=== PATIENT | female | born 1960 | race Caucasian/White ===

== ENCOUNTER 2019-03-05 14:44 | Outpatient (REF) | payer OTHER, SELFPAY ==
[2019-03-05 20:27] LABS: Anion Gap 10.4 mmol/L (3-11); BUN 13 mg/dL (7-18); CO2 26.6 mmol/L (21.0-32.0); CREATININE 1.06 mg/dL (0.55-1.02); Calcium 9.3 mg/dL (8.5-10.1); Chloride 103 mmol/L (98-107); Estimated GFR 52.88 (mL/min/1.73m2); Glucose 100 mg/dL (70-100); LDL CHOLESTEROL 192 mg/dL (<100); Potassium 4.1 mmol/L (3.5-5.1); Sodium 140 mmol/L (136-145); TSH 2.24 uIU/mL (0.36-3.74); Vitamin B12 396 pg/mL (193-986)
[2019-03-07 14:30] LABS: Albumin 63.2 % (55.8-66.1); Total Protein 6.9 g/dl (6.3-8.2)
== END 2019-03-05 15:04 ==
LOC: NCHCN 14:44
PROVIDERS: PCP Internal Medicine; Visit Provider Internal Medicine
DX: E78.5 Hyperlipidemia, unspecified (principal); G57.31 Lesion of lateral popliteal nerve, right lower limb
CPT/HCPCS: 80048; 83721; 82607; 84165; 84443

== ENCOUNTER 2019-04-30 18:22 | Outpatient (REF) | payer OTHER, SELFPAY ==
--- NOTE | 2019-04-30 11:05 | SKI_PTH ---
PATIENT: Susan Schneider LOC: [facility] U#:[id number] AGE/SX: 58/F ROOM: RE04/30/[address]: Zane Mcrae : 1960 BED: DIS: 04/30/2019 SPEC #: [id number] RECD: 04/30/19 18:30 STATUS: JOE RENohemy #: [id number] ORTIZ: 04/30/19 11:[address]: Zane Mcrae DEPT: Surgical Specimen RECD BY: Lilly Sanders ENTERED: 04/30/19 18:31 SP TYPE: JULIETTE MAURICE DR: Tyrel Watkins Tissues: 1 - SKIN BIOPSY(SHAVE/PUNCH) Procedures: SKIN LEVEL 4 Comments: [id number]
== END 2019-04-30 18:42 ==
LOC: LBN 18:22
PROVIDERS: PCP Dentist General Practice; Visit Provider Internal Medicine
DX: L82.1 Other seborrheic keratosis (principal)
CPT/HCPCS: 88305

== ENCOUNTER 2020-07-17 02:30 | Outpatient (CLI) | payer OTHER, SELFPAY ==
--- OUTSIDE RECORDS SUMMARY | 2020-07-17 02:32 | XMS_ITS ---
:1960 Author Care Team Providers Name Role Phone REBEKAH NGUYEN NP Primary Care Provider [phone] Allergies Code Code System Name Reaction Severity Status Onset 483600 RxNorm Bactrim Vomiting ? Active ? 11297 RxNorm Percocet Vomiting ? Active ? Medications Name Status Start Date Stop Date ? ? Celebrex 200 mg capsule Completed 01/25/2012 06/06/20 17 1 Capsule: daily cyclobenzaprine 10 mg tablet Active ? Not available diazepam 2 mg tablet Active ? Not availab le Fluarix Quad (PF) 60 Active ? N ot available mcg (15 mcg x 4)/0.5 mL IM syringe Fluarix Quad (PF) 60 mcg (15 mcg x 4)/0.5 mL IM syring e Active ? Not available DIRECTED hydrocodone 5 mg-acetaminophen Active ? N ot available 325 mg tablet ibuprofen 600 mg tablet Active ? Not avai lable meloxicam Active ? Not available as needed meloxicam 15 mg tablet Active ? Not avail able Problems Name Status Onset Date Source ? Hyperlipidemia Active 07/17/2018 ? Shoulder Pain Active 07/17/2018 ? Derangement of Knee Active ? History Knee Pain Active ? History General Examination of Patient Active ? H istory Procedures Date Name Performed by ? 08/17/2018 Drain/inj Joint/bursa W/o Us Information not available Notes: L thumb CMC joint wrist inject ion 08/17/2018 Shoulder Joint Surgery Information not a vailable Notes: R shoulder arthr. w/debrid., R CR, DCE, SAD,bicep tenodesis 01/07/2006 Lymph Node Excision Information not avai lable Notes: Left posterior cervical triang le ? Hysterectomy Information not avai lable ? Knee Surgery Information not avai lable Notes: right- partial knee replacemen t ? Elbow Surgery Information not avai lable Notes: right ? Caesarean Section Information not avai lable ? Shoulder Surgery Information not avai lable Notes: right rotator cuff 05/12/2018 MRI, Shoulder, W/o Contrast [facility] Radiology (Internal) [address] [place] [address] (Work Place) 11/03/2018 MRI, Finger(s), W/o Contrast [facility] Radiology (Internal) [address] [place] [address] (Work Place) 07/03/2020 XR, Finger(s), 2 or More View [facility] Radiology (Internal) [address] [place] [address] (Work Place) Results Lab Results Date Name Specimen Result Interpretation Description Value Range Status Address ? 12/23/2017 Lipid S High Chol 244 50-200 Final [facility] Panel, mg/dL mg/dL Hospital L ab Serum (Internal) : [address] ? ? S - Trig 74 mg/dL 10-150 Final [facility] untry mg/dL Hospital L ab (Internal) : [address] ? ? S High Hdl 81 mg/dL 40-60 Final [facility] untry mg/dL Hospital L ab (Internal) : [address] ? ? S High Ldl 148 0-130 Final [facility] mg/dL mg/dL Hospital L ab (Internal) : [address] Past Encounters 07/03/2020 Pain in Left Thumb SAURAV SealsC: [address] [place] [address] [place], [facility] [address], [place] [address], Ph. 11/22/2019 Chronic Back Pain Carlos Alvarez, PT: [address] [place], [place] [address] , [facility] [address], [place] [address], Ph. 10/08/2019 Chronic Back Pain Carlos Alvarez, PT: [address] [place] [address], [facility] [address], [place] [address], Ph. 10/03/2019 Chronic Back Pain Carlos Alvarez, PT: [address] [place] [address], [address] [address], Ph. 09/17/2019 Chronic Back Pain Carlos Alvarez, PT: [address] [place] [address], [address] [address], Ph. 09/10/2019 Chronic Back Pain Carlos Alvarez, PT: [address] [address], Ph. 07/04/2019 SAURAV SealsC: [address] [place] [phone], Ph. 05/02/2019 SAURAV SealsC: [address] [place] [phone], Ph. 03/20/2019 Lumbar Radiculopathy; Cramp in Lower [place] b; Numbness Zachariah Deal MD: [address] [place] [phone], Ph. 01/24/2019 SAURAV SealsC: [address] [place] [phone], Ph. Social History Tobacco Smoking Status Never Smoker Vaccine List Vaccine Type COVID-19, mRNA, LNP-S, PF, 30 mcg/0.3 mL dose 07/12/2020?0.3 mL DTP 06/02/2006 Hep B, adult MMR varicella Plan of Care Reminders Provider Appointments None ? ? recorded. Lab None ? ? recorded. Referral None ? ? recorded. Procedures None ? ? recorded. Surgeries None ? ? recorded. Imaging None ? ? recorded. Vitals 07/03/2020 01:30PM Follow Up 30 Height Blood Pressure 170.18 cm 112/78 mm[Hg] 07/04/2019 11:00AM Follow Up 15 Height Weight BMI Blood Pressure 170.18 cm 05/02/2019 10:00AM Follow Up 15 Height Weight BMI Blood Pressure 170.18 cm 87.63 kg 30.3 kg/m2 132/88 mm[Hg] 01/24/2019 11:00AM Follow Up 15 Height Weight BMI Blood Pressure 170.18 cm 12/08/2018 09:30AM Follow Up 30 Height Weight BMI Blood Pressure 170.18 cm 86.82 kg 30 kg/m2 158/92 mm[Hg] 10/18/2018 10:45AM Follow Up 15 Height Weight BMI Blood Pressure 170.18 cm 08/30/2018 08:45AM Post Op 15 Height Weight BMI Blood Pressure 170.18 cm 06/23/2018 10:45AM Follow Up 30 Height Weight BMI Blood Pressure 170.18 cm 83.91 kg 29 kg/m2 144/86 mm[Hg] 05/12/2018 09:30AM Consult 30 Height Weight BMI Blood Pressure 170.18 cm 83.55 kg 28.8 kg/m2 134/86 mm[Hg] 01/21/2012 Height Weight Blood Pressure 170.18 cm 92.53 kg 148/84 mm[Hg] 06/02/2006 Height Weight Blood Pressure 169.16 cm 78.93 kg 110/64 mm[Hg]
--- OUTSIDE RECORDS SUMMARY | 2020-07-17 02:33 | XMS_ITS | Encounter Summary ---
:1960 Author Care Team Providers Name Role Phone Leslie Monroe NP Primary Care Provider [phone] Reason for Visit Left hand problem L thumb pain Assessment and Plan Assessment Note 59-year-old female with a left firs t CMC osteoarthritis. We discussed the above diagnosis and options. Again previously she has already tried bracing activity modification she is had an injection i n the past but that was 2 years ago. I t hink is reasonable to consider repeat injection today. Sterile preparation was made over the fi rst CMC joint I injected half cc half percent Marcaine with 40 mg Depo-Medrol. She tolerated the procedure well without complications. She was made aware of lopez ns to contact the office otherwise follo w-up myself self in about 3 weeks. 1. Pain in left thumb ? XR, finger(s), 2 or more v iew Discussion Note: None recorded.Patient educational handouts: No information available. Plan of Care Reminders Provider Appointments Follow up Mary Cain PA-C 15 07/24/2020 8:45AM ? Covid Covid Vacci ne Vaccine 5 08/04/2020 12:35PM Lab None ? ? recorded. Referral None ? ? recorded. Procedures None ? ? recorded. Surgeries None ? ? recorded. Imaging XR, North Count [place] Finger(s), 2 or More 07/03/2020 Hospital [facility] (Internal) Medications Name Start Date ? ? cyclobenzaprine 10 mg tablet ? diazepam 2 mg tablet ? Take 1 tablet every day by oral route. Fluarix Quad (PF) 60 mcg (15 mcg x 4)/0.5 mL IM syringe ? Fluarix Quad (PF) 60 mcg (15 mcg x 4)/0.5 mL IM syringe ? DIRECTED hydrocodone 5 mg-acetaminophen 325 mg tablet ? ibuprofen 600 mg tablet ? Take 1 tablet 3 times a day by oral route. meloxicam ? as needed meloxicam 15 mg tablet ? Medications Administered None recorded. Vitals Height Blood Pressure 5 ft 7 in 112/78 mm[Hg] Results Lab Results None recorded. Allergies Code Code System Name Reaction Severity Onset 152278 RxNorm Bactrim Vomiting ? ? 95733 RxNorm Percocet Vomiting ? ? Problems Name Status Onset Date Source ? [...] not avai lable Notes: right rotator cuff 07/03/2020 XR, Finger(s), 2 or More View [facility] Radiology (Internal) [address] [place] [address] (Work Place) Vaccine List Vaccine Type COVID-19, mRNA, LNP-S, PF, 30 mcg/0.3 mL dose 07/12/2020?0.3 mL DTP 06/02/2006 Hep B, adult MMR varicella Social History Tobacco Smoking Status Never Smoker Illicit drug use? N Alcohol intake Occasional Live alone or with others? alone Hand Dominance Right Are you currently employed? Y Use IV drugs? N Most Recent Tobacco Use Screening 09/06/2018 Advance directive Y Notes: not in la rt, no blood transfusions d/t jeh ovahs witness Functional Status Unknown. Past Encounters 07/03/2020 Pain in Left Thumb aLmar Cain PA-C: [address] [facility], [address], [place] [address], Ph. History of Present Illness Note: <p>63-year-old patient seen in consultation today for left thumb pain. Patient has previously been known to have first CMC osteoarthritis. She was given an injection by Dr. Pace on 08/18/2018 while she was in the OR for her contralateral shoulder surgery. She comes in today stating that she notes pain at the base of her thumb. She feels like she is losing strength. Previous modalities already included bracing and physical therapy.
</p> Review of Systems ? Ortho ROS Reported By: Patient Ortho ROS: Do you have any of the follo wing symptoms? All systems reviewed and normal Physical Exam ? Notes: <p>Patient is alert and orie nted she is in no acute distress respirations unlabored peer inspection of the left hand shows skin is intact without lesions or deformity there i s no swelling. She has crepitus and tenderness to palpation of the left first CMC joint arthritis. She is able to make a composite fist. 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

X-rays: We did obtain x-rays in the office today which were reviewed by myself showing n arrowing at the first CMC joint consistent with osteoarthritis. I also revie wed an MRI that was 2019 of the left first CMC which showed osteoarthritis as well as some slight subluxation radially of the first metacarpal bone.</p>
[2020-07-18 17:02] LABS: COVID-19 RT-PCR UVMMC Result Negative (Negative)
== END 2020-07-17 02:50 ==
PROVIDERS: PCP Internal Medicine; Visit Provider Podiatrist
DX: Z11.59 Encounter for screening for other viral diseases (principal); Z01.818 Encounter for other preprocedural examination
CPT/HCPCS: U0003

== ENCOUNTER 2020-07-23 11:00 | Day surgery (SDC) | payer OTHER, SELFPAY ==
[2020-07-23 11:25] VITALS: BP 139/79; PULSE 67; RESP 18; TEMP 36.5; O2SAT 99
[2020-07-23] MEDS: Lactated Ringers 1,000 ML 80 ML IV (11:43)
--- NOTE | 2020-07-23 13:00 | W.PM.HP.N ---
Date of service: 07/23/20 Time of Service: 13:00 History of Present Illness History of Present Illness Chief Complaint: Recalcitrant right plantar fasciitis Narrative: 59-year-old female with chronic right plantar fasciitis that has not responded to nonoperative treatments. She has pain on a daily basis which is interfering with her ability to wear shoes, ambulate and perform her work duties. ON LICENSE OF [facility] Medical History Acute medial meniscus tear of left knee Compression of common peroneal nerve Depression Fibromyalgia Hallux valgus Hip pain History of trigger finger Hyperlipemia Lumbago with sciatica Pain, joint, shoulder, right Right ACL tear Seborrheic keratosis Spondylosis Venous insufficiency Vertigo Surgical History H/O: hysterectomy History of knee replacement Song (R) Hx of elbow surgery Hx of shoulder surgery Social History Smoking/Tobacco Use Status: Never Smoking risk assessment performed?: Yes Alcohol Intake: current Alcohol Intake frequency: a few times a month Drug use: Never Substance use type: does not use Do you feel safe at home: Yes Additional Social history: lives alone, has a cat Meds Home Medications and Allergies Home Medications Medication Instructions Recorded Confirmed Type COVID-19 vacc,mRNA(Pfizer)(PF) 0.3 ml IM ONCE 07/21/20 07/21/20 History meloxicam 15 mg PO DAILY 07/21/20 07/21/20 History Allergies Allergy/AdvReac Type Severity Reaction Status Date / Time oxycodone [From Percocet] Allergy Severe Other (See Unverified 07/23/20 11:31 Comment) sulfamethoxazole Allergy Severe Other (See Unverified 07/23/20 11:31 [From Bactrim] Comment) trimethoprim [From Bactrim] Allergy Severe Other (See Unverified 07/23/20 11:31 Comment) acetaminophen [From Percocet] Allergy Mild Other (See Unverified 07/23/20 11:31 Comment) Exam Narrative Exam Narrative: 59-year-old female in no acute distress looking her stated age. Head is normocephalic Eyes PERRLA Hearing is adequate Heart has regular rate and rhythm without gallops rubs or murmurs noted Lung tiwari were clear Abdomen is soft, bowel sounds x4 Peripheral pulses are easily palpable at the ankle graded 2/4. No peripheral edema noted. Calves are soft to palpation. Muscle groups 5 out of 5 bilaterally. Skeletal exam is remarkable for pain in the plantar medial aspect of the right heel and along the medial slip of plantar fascia. Pain is graded a +5/10. Neurologically grossly intact. No focal deficits noted. Impressions: Recalcitrant right plantar fasciitis Plan: Susan is being brought to the OR for a endoscopic plantar fasciotomy right foot. She understands risk and complications pertaining to pain, scarring, infection, persistent plantar fascial discomfort, lateral column pain, neurologic injury. No promises made to final outcome of surgery. Informed consent obtained. Results Last Vital Signs Temp 36.5 C 07/23/20 11:25 Pulse 67 07/23/20 11:25 Resp 18 07/23/20 11:25 BP 139/79 07/23/20 11:25 Pulse Ox 99 07/23/20 11:25 COVID-19 Screening Have you, or household traveled for leisure in last 14 days?: No Had IN PERSON contact w/suspected or confirmed C-19 person: No
[2020-07-23] MEDS: ceFAZolin 1 GM/50 ML BAG IVPB (13:16)
[2020-07-23] MEDS: Bupivacaine 0.5% Pres-Free 30 ML VIAL (13:22)
[2020-07-23] MEDS: Lidocaine 1% Multi-Dose 50 ML VIAL (13:22)
[2020-07-23] MEDS: Dexamethasone 4 MG/ML VIAL (13:52)
--- NOTE | 2020-07-23 13:58 | W.PM.DSUDISC ---
Discharge Plan Disposition Patient Disposition: HOME Condition: Good Discharge Details Reason For Visit: EPF right foot Attending Provider: Wade Logan Primary Care Provider: Zane Mcrae Home Meds and New Rx's Prescriptions: Continued meloxicam 15 mg tablet 15 mg PO DAILY RF: 0 COVID-19 vacc,mRNA(Pfizer)(PF) 30 mcg/0.3 mL Suspension For Reconstitution 0.3 ml IM ONCE RF: 0 Discharge Instructions Activity:: Elevate Remove Dressings/Wound Care:: Do Not Remove Shower/Bathe:: Cover Diet:: Normal Diet Discharge Orders Discharge Orders: Discharge Order (Routine); Ordered 07/23/20 Ordered By: Wade Logan DS: Diagnosis Discharge Diagnosis (1) Plantar fasciitis of right foot: Status: Acute
--- NOTE | 2020-07-23 14:01 | W.PM.OP ---
Date of service: 07/23/20 Time of Service: 14:01 Operative Note Operative Note DATE OF PROCEDURE: 07/23/20 PRE-OP DIAGNOSIS: Plantar fasciitis right foot POST-OP DIAGNOSIS: same PROCEDURE: Endoscopic plantar fasciotomy right foot SURGEON: Wade Logan ANESTHESIA: CHITO ESTIMATED BLOOD LOSS: 0 PATHOLOGY: none sent TOURNIQUET TIME: 18 COMPLICATIONS: None Patient was transported to: same day Patient's condition: stable Procedure Description: Susan was brought to the operative suite placed in the supine position with the right foot was prepped and draped in usual sterile podiatric fashion. Anesthesia was achieved through general anesthesia and a right ankle block consisting of 20 cc 50: 50 mixture 1% lidocaine plain, 0.5% Marcaine plain. Timeout was performed by protocol. The right foot was exsanguinated well-padded ankle tourniquet inflated 250 normal mercury. Was directed to the medial aspect of the right heel where a 1 cm vertical incision was placed approximately 5 cm distal from the back of the heel and 2.5 cm up from the plantar aspect of the heel. The incision was deepened with a curved hemostat and the medial vestige of the plantar fascia identified. The periosteal?fascial elevator was then inserted and a tunnel made from medial to lateral. The obturator and cannula were then inserted and placed exiting plantarly laterally on the heel. The scope 30 degrees was placed into the cannula and the plantar fascia was readily visualized. Picture was obtained at this level. The hook blade was then utilized in the medial third of the plantar fascia open. Underlying muscle belly was appreciated. The triangular blade was then used and any remaining fibers gently released. Photograph was obtained showing the underlying muscle through the fascia. The scope was removed from the medial portal and placed laterally to medially inspection revealed good release of the the appropriate portion of the plantar fascia. The cannula was then irrigated copiously with normal saline and the cannula was removed. The medial lateral incisions were closed with simple interrupted suture 3-0 nylon. 4 mg dexamethasone phosphate was infused deeply into the wound. Xeroform gauze fluff compression dressings were applied. Tourniquet was released at 18 minutes with vascularity returning immediately to all toes. Susan left the OR vital signs stable vascular status intact sharp and sponge counts were correct. To be followed by myself in the office next week. Dictated with Germain naturally speaking not approved for accuracy.
[2020-07-23 14:34] VITALS: BP 116/72; PULSE 65; RESP 18; TEMP 36.4; O2SAT 97
== END 2020-07-23 15:00 | disposition home or self-care (01) ==
PROVIDERS: PCP Internal Medicine; Visit Provider Podiatrist
PROC: (CPT 29893; principal; 2020-07-23 12:00)
DX: M72.2 Plantar fascial fibromatosis (principal)
CPT/HCPCS: 29893; 99223; J0690; J1100; J1885; J2001

== ENCOUNTER 2023-05-06 16:30 | Outpatient (REF) | payer MEDICAID, SELFPAY ==
--- OUTSIDE RECORDS SUMMARY | 2023-05-06 16:33 | XMS_ITS | Continuity of Care Document ---
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 Name Role Phone Neema Guan DO Primary Care Physician Encounter [facility] NBR [id number] Date(s): 12/09/22 - 12/09/22 [facility] [address] [place] [address]- [place] Discharge Disposition: Home or Self Care Attending Physician: Neema Guan DO Allergies, Adverse Reactions, Alerts Substance Reaction Severity Status dexAMETHasone topical Rash Moderate Active acetaminophen-oxycodone Unknown Unknown Acti ve Adhesive Bandage Rash Unknown Active Bee Stings Unknown Unknown Active sulfaSALAzine Unknown Unknown Active Melons Unknown Active Functional Status 12/09/22 Other exposure to Infectious Disease Non e Medications topiramate 25 mg oral tablet 50 mg =, Oral, Daily, 90 EA, TAKE ONE TABLET BY MOUTH IN THE MORNING AND TAKE 2 TABLETS IN THE EVENING DAILY, 0 Refill(s) Start Date: 05/25/22 Status: Ordered Problem List Condition Confirmation Course Effective Dates Status Health Status Informant Acquired spondylolisthesis Confirmed Active Bilateral sacroiliitis Confirmed Active History of anxiety Confirmed Active History of arthritis Confirmed Active History of depression Confirmed Active History of bowel disorder Confirmed Active History of fibromyalgia Confirmed Active History of hyperlipidemia Confirmed Active History of anemia Confirmed Active History of headache Confirmed Active Shoulder joint pain Confirmed Active Procedures Procedure Date Related Diagnosis Body Site Status Hysterectomy 1 Completed 1date unknown Social History Social History Type Response Tobacco Tobacco use status u nknown Tobacco Use:. Sex Patient Care team information Care Team Personnel Name: Neema Guan DO Position: Physician Member Role: Primary Care Physician Address: Address: [address] [place], [place] [address]
--- OUTSIDE RECORDS SUMMARY | 2023-05-06 16:33 | XMS_ITS | Continuity of Care Document ---
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 Name Role Phone Eliumelissa Donna Chad Primary Care Physician [phone] Encounter [facility] Date(s): 12/22/22 - 12/22/22 [facility] [address] [place] [address] Encounter Diagnosis Unilateral primary osteoarthritis of first carpometacarpal joint, left hand (Final) - Discharge Disposition: Home or Self Care Attending Physician: Simba Beck MD Admitting Physician: Simba Beck MD Referring Physician: Simba Beck MD Allergies, Adverse Reactions, Alerts Substance Reaction Severity Status sulfamethoxazole-trimethoprim Vomiting Unknown Active acetaminophen-oxycodone Vomiting Unknown Acti ve Tape Moderate Active Melons Unknown Active dexAMETHasone Unknown Active Assessment and Plan Future Appointments Functional Status 12/22/22 Recent Travel History No recent travel Other exposure to Infectious Disease Non e Immunizations Given and Recorded Vaccine Date Status Refusal Reason SARS-CoV-2 (COVID-19) mRNA BNT-162b2 vax 08/04/20 Recorded SARS-CoV-2 (COVID-19) mRNA BNT-162b2 vax 07/12/20 Recorded hepatitis B adult vaccine 07/25/00 Recorded measles/mumps/rubella virus vaccine 07/25/00 Recor ded varicella virus vaccine 07/25/00 Recorded Medications !-magnesium oxide 400 mg (240 mg elemental magnesium) oral tablet 400 mg 1 tab, Oral, Daily, # 100 tab, 0 Refill(s) Start Date: 12/13/22 Status: Ordered !-Zofran 4 mg oral tablet 4 mg = 1 tab, Oral, every 8 hr, # 20 cap, 0 Refill(s), Pharmacy: [facility], 170, cm, 12/18/21 15:37:00 EDT, Height/Length Dosing, 82.55, kg, 12/18/21 15:37:00 EDT, Weight Dosing Start Date: 12/22/22 Status: Ordered acetaminophen 0 Refill(s) Start Date: 12/22/22 Status: Ordered Dilaudid 2 mg oral tablet 2 mg = 1 tab, Oral, BID, # 5 tab, 0 Refill(s) Start Date: 12/23/22 Status: Ordered EPINEPHrine 0.3 mg injectable kit 2 EA, INJECT ONE PEN INJECTOR INTO THE MUSCLE DIRECTED NEEDED, 0 Refill(s) Start Date: 12/13/22 Status: Ordered topiramate 25 mg oral tablet 270 EA, TAKE ONE TABLET BY MOUTH EVERY MORNING AND TAKE TWO TABLETS BY MOUTH EVERY EVENING, 0 Refill(s) Start Date: 12/13/22 Status: Ordered turmeric 500 mg oral capsule 500 mg = 1 cap, Oral, Daily, # 60 cap, 0 Refill(s) Start Date: 12/13/22 Status: Ordered Problem List Condition Confirmation Course Effective Dates Status Health St atus Informant CMC DJD(carpometacarpal degenerative joint disease), localized primary Confirmed Active Procedures Procedure Date Related Diagnosis Body Site Status section Complete d Elbow Completed Hysterectomy Completed Knee 1 Completed Lymph node Completed Rotator cuff Completed 1PKR Vital Signs Most recent to oldest [Reference Range]: 1 2 3 Temperature Temporal Artery [36-38 Deg C] 36.4 Deg C (12/22/22 5:22 PM) 35.9 Deg C *LOW* (12/22/22 4:35 PM) 36.3 Deg C (12/22/22 4:20 PM) Temperature Temporal Artery (DegF) [97.3-100 Deg F] 96.62 Deg F *LOW* (12/22/22 4:35 PM) 97.34 Deg F (12/22/22 4:20 PM) Peripheral Pulse Rate [60-100 bpm] 64 bpm (12/22/22 5:22 PM) 72 bpm (12/22/22 5:20 PM) 75 bpm (12/22/22 5:15 PM) Heart Rate Monitored [60-100 bpm] 64 bpm (12/22/22 5:22 PM) 72 bpm (12/22/22 5:20 PM) 75 bpm (12/22/22 5:15 PM) Respiratory Rate [12-24 br/min] 18 br/min (12/22/22 5:22 PM) 16 br/min (12/22/22 5:20 PM) 18 br/min (12/22/22 5:15 PM) Blood Pressure [90-140/60-90 mmHg] 130/85mmHg (12/22/22 5:22 PM) 132/79mmHg (12/22/22 5:20 PM) 132/79mmHg (12/22/22 5:15 PM) Mean Arterial Pressure, Cuff [65-140 mmHg] 100 mmHg (12/22/22 5:22 PM) 97 mmHg (12/22/22 5:20 PM) 97 mmHg (12/22/22 5:15 PM) Mean Arterial Pressure Cuff 94 mmHg (12/22/22 10:54 AM) Blood Pressure Location Right arm (12/22/22 10:54 AM) Weight 82.8 kg (12/22/22 10:54 AM) Weight Estimated 82.55 kg (12/15/22 1:20 PM) Height 170 cm (12/22/22 10:54 AM) Social History Social History Type Response Tobacco Never tobacco user T obacco Use:. Sex Female Discharge instructions * Alana Henley: PERFORM Event Display: Discharge Instructions Authored Date: [id number] CHARANJIT AVILA :1960 Age:62 years Sex:Female Visit Date:12/22/2022 Primary Care Physician: Donna Lizama FIRE MANAGEMENT SPECIALIST Hospital Discharge Instructions We would like to thank you for allowing us to assist you with your healthcare needs. The following includes patient education materials and information regarding your injury/illness. Your Next Steps Instructions From Your Care Team Orthopedic Surgery Discharge Instructions keep splint clean and dry until follow up in ortho office sling PRN ?? Pain Control ?Take your pain relief medication when discomfort first begins. ?Can use stool softener while taking the narcotic to avoid problems with constipation. ?It is okay to start [id number] Naproxen or Ibuprofen??immediately ?? Call your doctor if you: ?Develop a fever over 101 degrees. ?Have increased redness, warmth, discharge, swelling, or hardness around the operative site. ?Circulation changes such as tingling, numbness or your fingers/toes appear blue or white. ?Your pain is not adequately controlled, despite taking your pain medication routinely. ?? On the day of surgery, or while taking narcotic pain medication: No driving, operating power equipment,?? drinking alcohol,?? or taking mood altering drugs? Apply warm, moist compress to IV site if sore or red, for 20 minutes, 4 times a day, for 2-3 days.?? Call your doctor if IV site soreness or redness persists. In the event of any problems after surgery, contact your doctor or the Emergency Room @ . Ortho Office: [phone]?? Scheduled Future Appointments Tuesday 3:15 PM EDT ?? With: Lamar Cain PA-C Where: [facility] [address] [place] [address], [address] [place] [address] Status: Confirmed 2022 10:15 AM EDT ?? With: Sanjeev VTSimba Bonilla MD Where: [facility] [address] [place] [address], [address] [place] [address] Status: Confirmed 2022 11:00 AM EDT ?? With: Penny Wilburn OT Where: [facility] [address] [place] [phone] Status: Confirmed Medications What How Much When Instructions Next Dose New HYDROcodone-acetaminophen (!-[place] 5 mg-325 mg oral tablet) 1 tab Oral (given by mouth) Every 6 hours as needed for as needed for pain Pickup at [facility] New ondansetron (!-Zofran 4 mg oral tablet) 1 tab Oral (given by mouth) Every 8 hours Pickup at [facility] Unchanged acetaminophen Unchanged EPINEPHrine (EPINEPHrine 0.3 mg injectable kit) 2 EA, INJECT ONE PEN INJECTOR INTO THE MUSCLE DIRECTED NEEDED ?? Unchanged magnesium oxide (!-magnesium oxide 400 mg (240 mg elemental magnesium) oral tablet) 1 tab Oral (given by mouth) Every day Unchanged topiramate (topiramate 25 mg oral tablet) 270 EA, TAKE ONE TABLET BY MOUTH EVERY MORNING AND TAKE TWO TABLETS BY MOUTH EVERY EVENING ?? Unchanged turmeric (turmeric 500 mg oral capsule) 1 Capsules Oral (given by mouth) Every day Pharmacy Information [facility]: [address] [place], [place] [phone] Your Summary Your Care Team Admitting Physician - Sanjeev SALAZAR, Simba Shine MD Attending Physician - Sanjeev SALAZAR, Simba Shine MD Primary Care Physician - Donna Lizama NP Referring Physician - Sanjeev SALAZAR, Simba Shine MD Problems Ongoing - Any problem that you are currently receiving treatment for. CMC DJD(carpometacarpal degenerative joint disease), localized primary Allergies Tape Melons acetaminophen-oxycodone??(Vomiting) dexAMETHasone sulfamethoxazole-trimethoprim??(Vomiting) Patient Name:VIOLET AVILAEILEEN Cheng I have received this information and my questions have been answered. Patient/Online Editor Name: Patient/Online Editor Signature: Relationship to Patient: Witness Name/Signature: Date: Electronically Signed on: 12/22/2022 16:38 EDTSigned by:EDENILSON History and physical note * Sisi Mon A: PERFORM Event Display: History and Physical Authored Date: [id number] CHARANJIT AVILA :1960 Age:62 years Sex:Female Primary Care Physician: Donna Lizama FIRE MANAGEMENT SPECIALIST Visit Date:??12/13/2022 [1] ? Chief Complaint EPSP- Left thumb pain d/t injury a few years ago. Last njection with Afsaneh 02/16/22. pt is readyn to discuss options. ?? *Meds reviewed and updated with pt. History of Present Illness Known patient history of left thumb CMC joint arthritis has been present for the last several years. ??Has had bracing and injections without significant benefit Review of Systems Constitutional:?No??fevers,?No??chills,?No??sweats Eye:?No??recent visual problems ENT:?No??ear pain,?No??nasal congestion,?No??sore throat Respiratory:?No??shortness of breath,?No??cough Cardiovascular:?No??Chest pain,?No??palpitations,?No??syncope Gastrointestinal:?Nonausea,?No??vomiting,?No??diarrhea Genitourinary:?No??hematuria Anil/Lymph:?No??bruising tendency,?No??swollen lymph glands Endocrine:?No??excessive thirst,??No??excessive hunger Musculoskeletal:??No??back pain,??No??neck pain,??No??joint pain,??No??muscle pain,??No??decreased range of motion Integumentary:?No??rash,?No??pruritus,?No??abrasions Neurologic: Alert & oriented X 4 Psychiatric:?No??anxiety,?No??depression Physical Exam ?Vitals & Measurements ?HT:??170.18??cm?? WT:??84.32??kg?? BMI:??29.11?? BSA:??2?? Well-nourished well-developed acute distress alert and oriented appearing stated age. ??Has normal elbow wrist hand range of motion normal capillary refill distally no open wounds signs of erythema or infection.?? Has significant pain and crepitance on CMC grind and shuck??stable collateral ligaments to the MP and IP joint with normal tendon function. Assessment/Plan 1.??CMC DJD(carpometacarpal degenerative joint disease), localized primary??M19.049 ?Procedure arthritis. ??Options watchful waiting therapy bracing injection surgical invention for CMC arthroplasty after discussing??the surgical procedure in detail as well as timeline for recovery she wished to proceed so we will set her up for CMC arthroplasty??see her back in at the time of surgery. ?Ordered: Surgical Procedure Booking Request, 12/13/22 10:02:00 EDT, [facility], Simba Shine MD, Primary Procedure, CMC arthroplasty left thumb, Left first CMC arthroplasty. Need 60 minutes. Date and time per maintenance and engineering manager. BMI 29. Standard equipment. Patient asking for regional block with light sed... ?? Thumb pain??M79.646 ?Ordered: XR Finger(s) 2+ Views Left, 12/13/22 10:17:00 EDT, Routine, Reason: pain, Transport Mode: Ambulatory, Thumb pain, Exam to be performed outside organization? ?? Problem List/Past Medical History Ongoing ?CMC DJD(carpometacarpal degenerative joint disease), localized primary Historical ?No qualifying data Procedure/Surgical History ??? section???Elbow???Hysterectomy???Knee???Lymph node???Rotatorcuff ?? Medications ??!-magnesium oxide 400 mg (240 mg elemental magnesium) oral tablet, 400 mg= 1 tab, Oral, Daily ??EPINEPHrine 0.3 mg injectable kit ??topiramate 25 mg oral tablet ??turmeric 500 mg oral capsule, 500 mg= 1 cap, Oral, Daily Allergies acetaminophen-oxycodone??(Vomiting) sulfamethoxazole-trimethoprim??(Vomiting) Social History Electronic Cigarette/Vaping ??Electronic Cigarette Use: Never. Tobacco ??Never tobacco user Tobacco Use:. [2] [1]??Office Visit Note; Simba Beck MD 12/13/2022 11:26 EDT [2]??Office Visit Note; Simba Beck MD 12/13/2022 11:26 EDT Electronically Signed on 12/15/22 11:27 AM ElieserSisi Electronically Signed on 12/15/22 11:35 AM Simba Beck MD * Simba Beck MD: PERFORM Event Display: History and Physical Authored Date: Patient was seen in preoperative hold no change in generalized health status H&P updated. Electronically Signed on 12/22/22 03:27 PM Simba Beck MD Patient Care team information Care Team Personnel Name: Donna Lizama FIRE MANAGEMENT SPECIALIST Position: PowerChart View Only Member Role: Informed Provider Address: Address: [address] [place] [address] Care Team Related Persons Name: LUIS ARGUELLO Name: VERONICA BERRY
--- OUTSIDE RECORDS SUMMARY | 2023-05-06 16:33 | XMS_ITS | Continuity of Care Document ---
Author Name Unknown Organization [facility] Address [address] [place] [address] Care Team Providers Care Combat Systems Engineer Name Role Phone ALEX MONGE, ADRIANE LEES Primary Care Physicia n Encounter [facility]BR [id number] Date(s): 03/16/23 - 03/16/23 [facility] [address] [place] [address] [place] Encounter Diagnosis Lumbar spondylosis(Discharge Diagnosis) - 03/16/23 Low back pain(Discharge Diagnosis) - 03/16/23 Discharge Disposition: Home or Self Care Attending Physician: Neema Guan DO Allergies, Adverse Reactions, Alerts Substance Reaction Severity Status dexAMETHasone topical Rash Moderate Active acetaminophen-oxycodone Unknown Unknown Acti ve Adhesive Bandage Rash Unknown Active Bee Stings Unknown Unknown Active Vicodin Vomiting Moderate Active sulfaSALAzine Unknown Unknown Active Melons Unknown Active Medications DULoxetine 20 mg oral delayed release capsule 20 mg = 1 cap, Oral, Daily, do not crush or chew, # 30 cap, 1 Refill(s), Pharmacy: [id number] Start Date: 03/16/23 Status: Ordered meloxicam 15 mg oral tablet 0 Refill(s) Start Date: 02/02/23 Status: Ordered topiramate 25 mg oral tablet 50 mg [...] Site Status Hysterectomy 1 Completed 1date unknown Vital Signs Most recent to oldest [Reference Range]: 1 Temperature Temporal Artery [36-38 Deg C ] 35.9 Deg C *LOW* (03/16/23 4:53 PM) Peripheral Pulse Rate [60-100 bpm] 73 bp m (03/16/23 4:53 PM) Blood Pressure [90-140/60-90 mmHg] 122/7 0mmHg (03/16/23 4:53 PM) Social History Social History Type Response Tobacco Tobacco use status u nknown Tobacco Use:. Sex Patient Care team information Care Team Personnel Name: ADRIANE JOHNSON PA-C Position: No Access Member Role: Primary Care Physician Address: Address: [address] [place] [id number]
--- OUTSIDE RECORDS SUMMARY | 2023-05-06 16:33 | XMS_ITS | Continuity of Care Document ---
Author Name Unknown Organization [facility] Address [address] [place] [address] Care Team Providers Care Emergency Medicine Name Role Phone Donna Lizama Primary Care Physician [phone] Encounter [facility] Date(s): 11/08/22 - 11/08/22 [facility] [address] [place] [address] Discharge Disposition: Home or Self Care Attending Physician: Mike Charles PA-C Admitting Physician: Mike Charles PA-C Referring Physician: Mike Charles PA-C Allergies, Adverse Reactions, Alerts Substance Reaction Severity Status sulfamethoxazole-trimethoprim Vomiting Unknown Active acetaminophen-oxycodone Vomiting Unknown Acti ve Immunizations Given and Recorded Vaccine Date Status Refusal Reason SARS-CoV-2 (COVID-19) mRNA BNT-162b2 vax 08/04/20 Recorded SARS-CoV-2 (COVID-19) mRNA BNT-162b2 vax 07/12/20 Recorded hepatitis B adult vaccine 07/25/00 Recorded measles/mumps/rubella virus vaccine 07/25/00 Recor ded varicella virus vaccine 07/25/00 Recorded Medications topiramate 0 Refill(s) Start Date: 12/18/21 Status: Ordered Social History Social History Type Response Tobacco Never tobacco user T obacco Use:. 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
--- OUTSIDE RECORDS SUMMARY | 2023-05-06 16:33 | XMS_ITS | Continuity of Care Document ---
Author Name Unknown Organization [facility] Ambulatory Clinics Address [address] [place] [address] Care Team Providers Care It Desktop Support Technician Name Role Phone Unavailable, Physician Primary Care Physician Un available Encounter [facility] NBR [id number] Date(s): 07/08/22 - 07/08/22 [facility] [address] [place] [address] [place] Encounter Diagnosis Lumbar radiculopathy(Discharge Diagnosis) - 07/08/22 Discharge Disposition: Home or Self Care Attending Physician: Gael Lopez DO Allergies, Adverse Reactions, Alerts Substance Reaction Severity Status acetaminophen-oxycodone Unknown Unknown Acti ve Adhesive Bandage Rash Unknown Active Bee Stings Unknown Unknown Active sulfaSALAzine Unknown Unknown Active Melons Unknown Active Assessment and Plan Future Appointments Functional Status 07/08/22 Other exposure to Infectious Disease Non e Medications calcitonin 100 IntlUnit =, Nasal, Daily, 0 Refill(s) Start Date: 05/25/22 Status: Ordered topiramate 25 mg oral tablet 50 mg =, Oral, Daily, 90 EA, TAKE ONE TABLET BY MOUTH IN THE MORNING AND TAKE 2 TABLETS IN THE EVENING DAILY, 0 Refill(s) Start Date: 05/25/22 Status: Ordered Problem List Condition Confirmation Course Effective Dates Status Health Status Informant Acquired spondylolisthesis Confirmed Active Bilateral sacroiliitis Confirmed Active Social History Social History Type Response Tobacco Tobacco use status u nknown Tobacco Use:. Sex Patient Care team information Personnel Name: Unavailable, Physician
--- OUTSIDE RECORDS SUMMARY | 2023-05-06 16:33 | XMS_ITS | Continuity of Care Document ---
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 Daughter and young grandchildren live close by. *Previous Level of Function: Patient was independent with all ADL and IADL with no functional difficulty using left hand prior to onset of arthritis. *Current Level of Function:??Patient is currently unable to open medication bottles. The vibration when weedwacking was painful, still, she was able to vacuum her car yesterday. She keeps the thumb brace on when turning doorknobs. Washing her hair is fine by now. She cannot hook her bra at all, so is wearing ice puller bra. She modifies activities, including using her feet or fingers vs thumb. Ziploc bags are miserable, she is currently using vice sales training representative to open these. Pain: Location: ??Not pain, just lame. Nature: ??Achy Behavior: ??The worst pain occurred with lifting Severity: ??2/10 at rest and 9/10 at the worst during the last week Other: ??Continues to use ice and Tylenol prn. Pain does not wake her up from sleep. Hand Dominance: Right HAND Palpation:??No tenderness to gentle palpation at thumb or over any incision site. Minimal scar tissue adherence. Skin Inspection: Scars appear well healed. She continues to use Vitamin C cream, scar zone and Frankincense over incisions daily. Hand Edema (general): None significant. Finger Joint Mobility/ROM/Strength: Thumb R AROM L AROM R PROM L PROM R Strength L Strength MP Flexion ??68 ??37 MP Extension ??0 ??0 Radial Abduction ??56 ??50 Palmar Abduction ??45 ??46 IP Flexion ??66 ??52 IP Extension ??0 ??0 Digit Composite ROM: Patient is able to make bilateral closed fists with all digits touching palm. Opposition: Patient can touch: Right tip Right base Left tip Left base Index Middle Ring Little All ??yes ??yes ??yes ??1.0 cm away Warehouse Technician Strength (lbs): Not assessed as per protocol Trial #1 Trial #2 Trial #3 Average R L R L R L R L Dynamometer Position #1 Dynamometer Position #2 Dynamometer Position #3 Dynamometer Position #4 Dynamometer Position #5 Warehouse Technician Strength Normative Values (lbs): Warehouse Technician Strength Normative Values (lbs): Female ages 60-64: right mean 55.1 with SD 10.1 and left mean 45.7 with SD 10.1 3 Point Pinch Strength (lbs): Not assessed as per protocol Trial #1 Trial #2 Trial #3 Average R L R L R L R L 3 Point Pinch Strength Normative Values (lbs): 3 Point Pinch Strength Normative Values (lbs): Female ages 60-64: right mean 14.8 with SD 3.1 and left mean 14.3 with SD 2.7 2 Point Pinch Strength (lbs): Not assessed as per protocol Trial #1 Trial #2 Trial #3 Average R L R L R L R L 2 Point Pinch Strength Normative Values: 2 Point Pinch Strength Normative Values (lbs): Female ages 60-64: right mean 10.1 with SD 2.1 and left mean 9.9 with SD 2.0 Lateral Pinch Strength (lbs): Not assessed as per protocol Trial #1 Trial #2 Trial #3 Average R L R L R L R L Lateral Pinch Strength Normative Values: Lateral Pinch Strength Normative Values (lbs): Female ages 60-64: right mean 15.5 with SD 2.7 and left mean 14.1 with SD 2.5 Hand Sensation: Intact, patient denies any paresthesia or numbness in any digit. Manual Dexterity and Coordination Tests: 9 Hole Peg Test: ?Normative Values: 9 Hole Peg Test Normative Values: Female ages 61-65: right mean 18.99 with SD 2.18 and left mean 20.33 with SD 2.76 ? Results/Analysis: R 23.15 seconds, L 28.3 seconds (pain through thumb IP joint) Hand Orthosis: Currently using left thumb spica orthosis with any aggravating activity and during sleep. WRIST Palpation and Skin Inspection: WFL Wrist Edema (general): ??None significant. Wrist Joint Mobility/ROM/Strength: Strength not assessed as per protocol. R AROM L AROM R PROM L PROM R Strength L Strength Flexion ??81 ??60 (pain at dorsal hand) Extension ??60 ??51 Ulnar Deviation ??40 ??29 Radial Deviation ??20 ??12 Supination ??WFL ??WFL Pronation ??WFL ??WFL Wrist Sensation: Intact. Upper Quadrant Screen: Elbow and shoulder AROM are WFL bilaterally. *Patient Education: Home program initiated with wrist stretches and gentle thumb AROM, as well as PROM to be performed at 6 weeks post op. Review of protocol. Upcoming POC. *Occupational Therapy Assessment: Patient is a 62 year old female referred to OT s/p left first CMCarthroplasty with DOS 12/22/22. She presents today with left thumb and wrist stiffness, and will benefit from therex provided to maximize AROM. Patient's scars appear to be healing well. Strength was not assessed today as per protocol. Patient demonstrates good understanding of her home program, still, she will benefit from additional skilled OT services to maximize post op protocol and functionaluse of her left hand during ADL. *Rehab Potential: Good?to reach the established goals *Functional Outcome Measure: FOM: Patient Rated Wrist/Hand Evaluation (PRWHE) ? Score: Current functional impairment level is 54% *Short Term Goals:??deferred to LTG *Project Asst Goals: time frame is 3 weeks 1. Patient will have no more than 5/10 left thumb pain at the worst during ADL. 2. Left thumb IP flexion AROM will be 59 degrees, to facilitate independence with clothing fastenermanagement. 3. Left wrist flexion AROM will be 68 degrees, to facilitate independence with cooking tasks. Strengthening goals to come as appropriate. *Patient Goals: To use left hand without pain. *Frequency of Treatment: 1x follow up *Intensity of Treatment (minutes):??45 minutes *Duration of Treatment (days/weeks): 3 weeks *Planned Treatment Interventions: ??x CPT 32699: Therapeutic Exercise: A/AA/PROM, gentle resistive therex as per protocol CPT G0283: Electrical Stimulation ??x CPT 08868: Therapeutic Activity: body mechanics education, activity modification prn CPT 43970: Biofeedback ??x CPT 07733: Manual Therapy: scar management and IASTM prn CPT 37492: Sensory Integration CPT 68036: Neuromuscular Re-education CPT 69196: Wheelchair Management Training CPT 65609: Massage CPT 01543: Physical Performance Test CPT 94718: Self-Care/Home Management CPT 34937: Initial Orthotic Fit/Train CPT 75519: Ultrasound CPT 43104: Initial Prosthetic Train CPT 55145: Iontophoresis ??x CPT 58332: Subsequent Orthotic/Prosthetic Encounter: adjustments to current thumb spica prn CPT 19298: Paraffin Bath CPT 52081: Ergo/Assistive Device Training CPT 14940: Contrast Bath CPT 20573: Cognitive Function?initial 15 minutes CPT 46847: Electrical Stimulation CPT 82521: Cognitive Function - each add???l 15 minutes L codes/Orthosis *Discharge Plan: Upon achieving goals or maximal benefit of therapy services. Plan: Progress summary at next visit. Reassess thumb and wrist AROM, assess strength and update home program with gentle resistive therex as appropriate. *Procedure Documentation: CPT 85259: Low Complexity OT Evaluation: 51 minutes Occupational Therapy Low Complexity Evaluation performed. History involves expanded review. Examination of performance deficit(s) includes 1-3 elements. Clinical decision making includes limited?? treatment option considerations. possibly present?comorbidities. Task modifications/assistance are not necessary. *Total Time: 51 minutes *Time In: 11:01 *Time Out: 11:52 Electronically Signed on 01/31/23 10:48 AM Penny Wilburn OT Physical therapy Progress note * Penny Gregorio PT: PERFORM Event Display: Physical Therapy Progress Note Authored Date: [id number] Patient Care team information Care Team Personnel Name: Donna Lizama COOK CASHIER FOOD PREP Position: PowerChart View Only Member Role: Informed Provider Address: Address: [address] [place] [address] Care Team Related Persons Name: LUIS ARGUELLO Name: VERONICA BERRY
--- OUTSIDE RECORDS SUMMARY | 2023-05-06 16:33 | XMS_ITS | Continuity of Care Document ---
Author Name Unknown Organization [facility] Ambulatory Clinics Address [address] [place] [address] Encounter [facility] [facility] NBR [id number] Date(s): 10/28/22 - 10/28/22 [facility] Ambulatory Clin[facility] [address] [place] [address]- [place] Discharge Disposition: Home Allergies, Adverse Reactions, Alerts Substance Reaction Severity Status dexamethasone topical Rash Moderate Active acetaminophen-oxycodone Unknown Unknown Acti ve Adhesive Bandage Rash Unknown Active Bee Stings Unknown Unknown Active sulfaSALAzine Unknown Unknown Active Melons Unknown Active Assessment and Plan Future Appointments Medications topiramate 25 mg oral tablet 50 [...]
--- OUTSIDE RECORDS SUMMARY | 2023-05-06 16:33 | XMS_ITS | Continuity of Care Document ---
Author Name Unknown Organization [facility] Ambulatory Clinics Address [address] [place] [address] Encounter [facility] [facility] NBR [id number] Date(s): 10/08/22 - 10/08/22 [facility] Ambulatory Clinics [address] [place] [address]- [place] Discharge Disposition: Home or Self Care Attending Physician: Neema Guan DO Allergies, Adverse Reactions, Alerts Substance Reaction Severity Status dexamethasone topical Rash Moderate Active acetaminophen-oxycodone Unknown Unknown Acti ve Adhesive Bandage Rash Unknown Active Bee Stings Unknown Unknown Active sulfaSALAzine Unknown Unknown Active Melons Unknown Active Functional Status 10/08/22 Other exposure to Infectious Disease Non e Medications topiramate 25 mg oral tablet 50 mg =, Oral, Daily, 90 EA, TAKE ONE TABLET BY MOUTH IN THE MORNING AND TAKE 2 TABLETS IN THE EVENING DAILY, 0 Refill(s) Start Date: 05/25/22 Status: Ordered Problem List Condition Confirmation Course Effective Dates Status Health Status Informant Acquired spondylolisthesis Confirmed Active Bilateral sacroiliitis Confirmed Active Vital Signs Most recent to oldest [Reference Range]: 1 Temperature Tympanic [36.6-37.9 Deg C] 3 6.0 Deg C *LOW* (10/08/22 8:32 AM) Peripheral Pulse Rate [60-100 bpm] 78 bp m (10/08/22 8:32 AM) Respiratory Rate [12-24 br/min] 16 br/mi n (10/08/22 8:32 AM) Blood Pressure [90-140/60-90 mmHg] 120/7 4mmHg (10/08/22 8:32 AM) Social History Social History Type Response Tobacco Tobacco use status u nknown Tobacco Use:. Sex
--- OUTSIDE RECORDS SUMMARY | 2023-05-06 16:33 | XMS_ITS | Continuity of Care Document ---
Author Name Unknown Organization [facility] Ambulatory Clinics Address [address] [place] [address] Care Team Providers Care Bargeman Name Role Phone JANICE CLEMONSIDE Chad Primary Care Physician [phone] Encounter [facility] [facility] NBR [id number] Date(s): 02/02/23 - 02/02/23 [facility] Ambulatory Clinics [address] [place] [address]- Discharge Disposition: Home or Self Care Attending Physician: Neema Guan DO Allergies, Adverse Reactions, Alerts Substance Reaction Severity Status dexAMETHasone topical Rash Moderate Active acetaminophen-oxycodone Unknown Unknown Acti ve Adhesive Bandage Rash Unknown Active Bee Stings Unknown Unknown Active Vicodin Vomiting Moderate Active sulfaSALAzine Unknown Unknown Active Melons Unknown Active Assessment and Plan Future Appointments Functional Status 02/02/23 Family Member Travel History No recent t ravel Recent Travel History No recent travel Other exposure to Infectious Disease Non e Medications diazePAM 2 mg oral tablet See Instructions, For pre-procedure anxiety: Take 1 tab 30 minutes prior to procedure. If ineffective, may take second tab., # 2 tab, 0 Refill(s), Pharmacy: [id number] Start Date: 01/10/23 Status: Ordered meloxicam 15 mg oral tablet [...] recent to oldest [Reference Range]: 1 Temperature Oral [35.8-37.3 Deg C] 35.7 Deg C *LOW* (02/02/23 8:20 AM) Peripheral Pulse Rate [60-100 bpm] 59 bp m *LOW* (02/02/23 8:20 AM) Respiratory Rate [12-24 br/min] 18 br/mi n (02/02/23 8:20 AM) Blood Pressure [90-140/60-90 mmHg] 124/7 6mmHg (02/02/23 8:20 AM) Social History Social History Type Response Tobacco Tobacco use status u nknown Tobacco Use:. Sex Discharge instructions * Event Display: Discharge Instructions History and physical note * Event Display: History and Physical Update Patient Care team information Care Team Personnel Name: MARY CLEMONS Position: No Access Member Role: Primary Care Physician Address: Address: [address]
--- OUTSIDE RECORDS SUMMARY | 2023-05-06 16:33 | XMS_ITS | Continuity of Care Document ---
Author Name Unknown Organization [facility] Ambulatory Clinics Address [address] [place] [address] Encounter [facility] FIN NBR [id number] Date(s): 11/10/22 - 11/10/22 [facility] Ambulatory Clinics [address] [place] [address]- [place] Discharge Disposition: Home or Self Care Attending Physician: Neema Guan DO Allergies, Adverse Reactions, Alerts Substance Reaction Severity Status dexAMETHasone topical Rash Moderate Active acetaminophen-oxycodone Unknown Unknown Acti ve Adhesive Bandage Rash Unknown Active Bee Stings Unknown Unknown Active sulfaSALAzine Unknown Unknown Active Melons Unknown Active Functional Status 11/10/22 Other exposure to Infectious Disease Non e [...]
--- OUTSIDE RECORDS SUMMARY | 2023-05-06 16:33 | XMS_ITS | Continuity of Care Document ---
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) - 08/18/22 Discharge Disposition: Home or Self Care Attending Physician: Neema Capellan DO Allergies, Adverse Reactions, Alerts Substance Reaction Severity Status acetaminophen-oxycodone Unknown Unknown Acti ve Adhesive Bandage Rash Unknown Active Bee Stings Unknown Unknown Active sulfaSALAzine Unknown Unknown Active Melons Unknown Active Assessment and Plan Future Appointments Functional Status 08/18/22 Other exposure to Infectious Disease Non e [...] Temperature Temporal Artery [36-38 Deg C ] 36.4 Deg C (08/18/22 3:11 PM) Peripheral Pulse Rate [60-100 bpm] 74 bp m (08/18/22 3:11 PM) Blood Pressure [90-140/60-90 mmHg] 118/6 4mmHg (08/18/22 3:11 PM) Weight 83.7 kg (08/18/22 3:11 PM) Weight Measured (lbs) 184.527 lb (08/18/22 3:11 PM) [place] Body Weight Calculated 61.6 kg (08/18/22 3:11 PM) Height 170.18 cm (08/18/22 3:11 PM) Height/Length Measured (inches) 67 inch (08/18/22 3:11 PM) BSA Measured 1.99 m2 (08/18/22 3:11 PM) Body Mass Index 28.9 kg/m2 (08/18/22 3:11 PM) Social History Social History Type Response Tobacco Tobacco use status u nknown Tobacco Use:. Sex
--- OUTSIDE RECORDS SUMMARY | 2023-05-06 16:33 | XMS_ITS | Continuity of Care Document ---
Author Name Unknown Organization [facility] Ambulatory Clinics Address [address] [place] [address] Encounter [facility] NBR [id number] Date(s): 06/02/22 - 06/02/22 [facility] Ambulatory Clinics [address] [place] [address] [place] Discharge Disposition: Home or Self Care Attending Physician: Gael Lopez DO Allergies, Adverse Reactions, Alerts Substance Reaction Severity Status acetaminophen-oxycodone Unknown Unknown Acti ve Adhesive Bandage Rash Unknown Active Bee Stings Unknown Unknown Active sulfaSALAzine Unknown Unknown Active Melons Unknown Active Assessment and Plan Future Appointments Functional Status 06/02/22 Other exposure to Infectious Disease Non e [...]
--- OUTSIDE RECORDS SUMMARY | 2023-05-06 16:33 | XMS_ITS | Continuity of Care Document ---
Author Name Unknown Organization [facility] Ambulatory Clinics Address [address] [place] [address] Encounter [facility] NBR [id number] Date(s): 05/25/22 - 05/25/22 [facility] Ambulatory Clinics [address] [place], [place] [address] Encounter Diagnosis Sacroiliac joint dysfunction(Discharge Diagnosis) - 05/25/22 Lumbar radiculopathy(Discharge Diagnosis) - 05/25/22 Myofascial pain(Discharge Diagnosis) - 05/25/22 Discharge Disposition: Home or Self Care Attending Physician: Gael Lopez DO Referring Physician: Milan Velarde MD Functional Status 05/25/22 Other exposure to Infectious Disease Non e Medications calcitonin 0 Refill(s) Start Date: 05/25/22 Status: Ordered topiramate 25 mg oral tablet 90 EA, TAKE ONE TABLET BY MOUTH IN THE MORNING AND TAKE 2 TABLETS IN THE EVENING DAILY, 0 Refill(s) Start Date: 05/25/22 Status: Ordered Vital Signs Most recent to oldest [Reference Range]: 1 Temperature Temporal Artery [36-38 Deg C ] 36.3 Deg C (05/25/22 1:55 PM) Peripheral Pulse Rate [60-100 bpm] 67 bp m (05/25/22 1:55 PM) Weight 81.92 kg (05/25/22 1:55 PM) Weight Measured (lbs) 180.602 lb (05/25/22 1:55 PM) [place] Body Weight Calculated 61.6 kg (05/25/22 1:55 PM) Height 170.18 cm (05/25/22 1:55 PM) Height/Length Measured (inches) 67 inch (05/25/22 1:55 PM) BSA Measured 1.97 m2 (05/25/22 1:55 PM) Body Mass Index 28.29 kg/m2 (05/25/22 1:55 PM) Social History Social History Type Response Tobacco Tobacco use status u nknown Tobacco Use:. Sex
--- OUTSIDE RECORDS SUMMARY | 2023-05-06 16:33 | XMS_ITS | Continuity of Care Document ---
Author Name Unknown Organization [facility] Address [address] [place] [address] Care Team Providers Care Slide Fasteners Inspector Name Role Phone Eliumelissa Donna Chad Primary Care Physician Encounter [facility] Date(s): 08/20/22 - 08/20/22 [facility] [address] [place] [address] Discharge Disposition: Home or Self Care Attending Physician: Eugenia Ferris PA-C Admitting Physician: Eugenia Ferris PA-C Referring Physician: Eugenia Ferris PA-C Allergies, Adverse Reactions, Alerts Substance Reaction [...] 0 Refill(s) Start Date: 12/18/21 Status: Ordered Results Laboratory List Name Date Comprehensive Metabolic Panel 08/20/22 Hemoglobin A1c 08/20/22 Lipid Panel 08/20/22 Thyroid Stimulating Hormone 08/20/22 Most recent to oldest [Reference Range]: 1 BUN [7-18 mg/dL] 16 mg/dL (08/20/22 7:30 AM) Cholesterol Total [50-200 mg/dL] 315 mg/ dL *HI* (08/20/22 7:30 AM) LDL [0-130 mg/dL] 209 mg/dL *HI* (08/20/22 7:30 AM) Glucose Level [74-106 mg/dL] 88 mg/dL (08/20/22 7:30 AM) Potassium Level [3.5-5.1 mmol/L] 3.9 mmo l/L (08/20/22 7:30 AM) HDL [40-60 mg/dL] 90 mg/dL *HI* (08/20/22 7:30 AM) AST [15-37 unit/L] 22 unit/L (08/20/22 7:30 AM) ALT [14-59 unit/L] 22 unit/L (08/20/22 7:30 AM) Sodium Level [136-145 mmol/L] 140 mmol/L (08/20/22 7:30 AM) Triglycerides [0-150 mg/dL] 78 mg/dL (08/20/22 7:30 AM) Calcium Level [8.5-10.1 mg/dL] 8.7 mg/dL (08/20/22 7:30 AM) Albumin Level [3.4-5.0 g/dL] 3.4 g/dL (08/20/22 7:30 AM) Protein Total [6.4-8.2 g/dL] 6.6 g/dL (08/20/22 7:30 AM) Bilirubin Total [0.2-1.0 mg/dL] 0.5 mg/d L (08/20/22 7:30 AM) Alk Phos [46-146 unit/L] 101 unit/L (08/20/22 7:30 AM) CO2 [21-32 mmol/L] 24 mmol/L (08/20/22 7:30 AM) TSH [0.358-3.740 mcIntlUnit/mL] 2.104 mc IntlUnit/mL (08/20/22 7:30 AM) eGFR Non-AA [>=60] 62 (08/20/22 7:30 AM) eGFR AA [>=60] 62 (08/20/22 7:30 AM) Hemoglobin A1c [4.0-6.0 %] 5.2 % (08/20/22 7:30 AM) Chloride Level [98-107 mmol/L] 107 mmol/ L (08/20/22 7:30 AM) Creatinine Level [0.55-1.02 mg/dL] 1.02 mg/dL (08/20/22 7:30 AM) Social History Social History Type Response Tobacco Never tobacco user T obacco Use:. Sex Female Patient Care team information Personnel Name: Donna Lizama DAY CARE HOME PROVIDER Address: Address: [address] [place] [address]
--- OUTSIDE RECORDS SUMMARY | 2023-05-06 16:33 | XMS_ITS | Continuity of Care Document ---
Author Name Unknown Organization [facility] Ambulatory [facility] Address [address] [place] [address] Encounter [facility] NBR [id number] Date(s): 07/23/22 - 07/23/22 [facility] [address] [place] [address] [place] Encounter Diagnosis Lumbar radiculopathy(Discharge Diagnosis) - 07/23/22 Sacroiliac joint dysfunction(Discharge Diagnosis) - 07/23/22 Myofascial pain(Discharge Diagnosis) - 07/23/22 Discharge Disposition: Home or Self Care Attending Physician: Gael Lopez DO Allergies, Adverse Reactions, Alerts Substance Reaction Severity Status acetaminophen-oxycodone Unknown Unknown Acti ve Adhesive Bandage Rash Unknown Active Bee Stings Unknown Unknown Active sulfaSALAzine Unknown Unknown Active Melons Unknown Active Functional Status 07/23/22 Other exposure to Infectious Disease Non e [...] Temperature Temporal Artery [36-38 Deg C ] 37.1 Deg C (07/23/22 10:22 AM) Peripheral Pulse Rate [60-100 bpm] 62 bp m (07/23/22 10:22 AM) Weight 80.29 kg (07/23/22 10:22 AM) Weight Measured (lbs) 177.009 lb (07/23/22 10:22 AM) Maurice Body Weight Calculated 61.6 kg (07/23/22 10:22 AM) Height 170.18 cm (07/23/22 10:22 AM) Height/Length Measured (inches) 67 inch (07/23/22 10:22 AM) BSA Measured 1.95 m2 (07/23/22 10:22 AM) Body Mass Index 27.72 kg/m2 (07/23/22 10:22 AM) Social History Social History Type Response Tobacco Tobacco use status u nknown Tobacco Use:. Sex Physician Outpatient Note * Gael Lopez, DO: PERFORM Event Display: Office Clinic Note Physician Authored Date: [id number] CHARANJIT AVILA :1960 Age:61 years Sex:Female Visit Date:07/23/2022 Chief Complaint bilat L5 TFB f/u Additional Information pain is easing some, but still bothersome when wearing heavier shoes or walking on uneven ground History of Present Illness Patient is here for follow-up after??bilateral L5 transforaminal epidural. ??Patient is to have 60 to 70% relief.?? She continues to have back pain but denies any radiation of pain.?? Denies any adverse reactions to injection??or any new numbness weakness or bladder bowel dysfunction Review of Systems Patient denies any shortness of breath, chest pain, adverse reaction to procedures, new numbness, weakness, bladder dysfunction, bowel dysfunction, falls, gait/balance impairment Physical Exam Vitals & Measurements T:??37.1?C ??(Temporal Artery)?? HR:??62??(Peripheral)?? SpO2:??100%?? HT:??170.18??cm?? WT:??80.29??kg?? BMI:??27.72?? BSA:??1.95?? [place]: AOx3, NAD Mood: pleasant ROM: pain with Palpation: tenderness to??palpation, trigger points noted??noted Respiratory: non labor, non distress Strength: 5/5 overall except 4/5 hip??extension in abduction Neuro: Romberg's and Trendelenburg??positive Provocative exam: , Compression, Distraction, FABERS,??Cem and?? Galenson postiive gait: Antalgic, steady ?? Procedure Diagnosis: Lumbar spinal??enthesopathy, myofascial pain Procedure:??Lumbar paraspinal and gluteal trigger point injections ?? After risk and benefits were explained to the patient in detailed, the patient agreed to proceedwith trigger point injections. After?? identifying trigger points by palpation and sterilizing the skin with an alcohol solution, a 22 gauge needle was placed into each trigger points. After negativeaspriation a lidocaine solution was injected into each trigger point. Then each trigger point was peppered. The needle was withdrawn and there were no complications. A total of 5 TPI were performed to the lumbar paraspinals Assessment/Plan Lumbar radiculopathy??M54.16 Patient received 60 to 70% relief??from bilateral L5 transforaminal epidural x1. ??Patient also hasreceived sacroiliac joint ejections in the past.?? Patient residual pain appears secondary to unresolved sacroiliac joint dysfunction lumbar radiculopathy and myofascial pain Performed trigger point injections today Patient would benefit from repeat bilateral sacroiliac joint injection in??L5 transforaminal epidural unfortunately??this provider does not have enough time??to get it??approved by her Worker's Comp.??Patient will need to set up care??with a new partner??for possible additional injections Continue aquatic therapy with progression to land-based therapy ?? Follow-up in 1 week with this provider in 4 weeks with new provider.?? Patient was playing at this is last week of this provider. ??She expressed understanding Myofascial pain??M79.18 Sacroiliac joint dysfunction??M53.3 Problem List/Past Medical History Ongoing Acquired spondylolisthesis Bilateral sacroiliitis Historical No qualifying data Medications calcitonin, 100 IntlUnit, Nasal, Daily topiramate 25 mg oral tablet, 50 mg, Oral, Daily Allergies Adhesive Bandage??(Rash) Bee Stings??(Unknown) Melons acetaminophen-oxycodone??(Unknown) sulfaSALAzine??(Unknown) Social History Electronic Cigarette/Vaping Electronic Cigarette Use: Unknown/not obtained. Tobacco Tobacco use status unknown Tobacco Use:. Electronically Signed on 07/23/22 01:17 PM Gael Damper, DO
--- OUTSIDE RECORDS SUMMARY | 2023-05-06 16:33 | XMS_ITS | Continuity of Care Document ---
Author Name Unknown Organization [facility] Address [address] [place] [address] Care Team Providers Care Airline Dispatcher Name Role Phone Donna Lizama Primary Care Physician Encounter [facility] Date(s): 01/14/22 - 04/27/22 [facility] [address] [place] [address] Encounter Diagnosis Other low back pain(Final) - Discharge Disposition: Discharged to home or self-care Attending Physician: Donna Lizama INTERVENTIONAL PHYSICIAN Admitting Physician: Donna Lizama NP Referring Physician: Donna Lizama INTERVENTIONAL PHYSICIAN Allergies, Adverse Reactions, Alerts Substance Reaction Severity [...] Care team information Personnel Name: Donna Lizama INTERVENTIONAL PHYSICIAN Address: Address: [address] [place] [id number] [place] [address]
[2023-05-06 18:57] LABS: HCT 39.9 % (36.0-46.0); HGB 13.4 g/dL (11.2-15.7); MCH 32.1 pg (27.0-33.0); MCHC 33.6 % (32.0-36.0); MCV 96 fL (80-95); MPV 9.8 fL (8.0-11.0); Platelet Count 232 10^3/uL (130-400); RBC 4.17 10^6/uL (3.93-5.22); RDW 12.5 % (11.7-14.6); RDW-SD 44.2 fL; WBC 5.53 10^3/uL (4.4-10.8)
[2023-05-06 19:05] LABS: Iron 70 ug/dL (50-170); Total Iron Binding Capacity 283 ug/dL (250-450); Transferrin Sat 25 % (15-50)
[2023-05-06 19:12] LABS: ALT 20 U/L (14-59); AST 28 U/L (15-37); Albumin 3.7 g/dL (3.4-5.0); Alkaline Phosphatase 124 U/L (46-116); BUN 16 mg/dL (7-18); Bilirubin, Total 0.2 mg/dL (0.2-1.0); CREATININE 1.2 mg/dL (0.55-1.02); Calcium 9.5 mg/dL (8.5-10.1); Chloride 105 mmol/L (98-107); Estimated GFR 50.55 (mL/min/1.73m2); Glucose 112 mg/dL (74-106); Magnesium 2.3 mg/dL (1.8-2.4); Potassium 3.7 mmol/L (3.5-5.1); Sodium 139 mmol/L (136-145); Total Protein 7.1 g/dL (6.4-8.2)
[2023-05-06 19:28] LABS: Vitamin D 25 Total 26.1 ng/mL (30-100)
[2023-05-06 19:48] LABS: Ferritin 140 ng/mL (8-252); Vitamin B12 310 pg/mL (193-986)
[2023-05-07 21:32] LABS: Rheumatoid Factor <8.6 IU/mL (<12.0)
[2023-05-09 09:10] LABS: Cyclic Citrullinated Peptide <2.5 U/mL (<5.0)
[2023-05-11 14:04] LABS: ESR (LRH) 15 mm/hr
== END 2023-05-06 16:31 | disposition home or self-care (01) ==
LOC: NCHCN 16:30
PROVIDERS: PCP Internal Medicine; Visit Provider Physician Assistant
DX: R53.83 Other fatigue (principal); L60.9 Nail disorder, unspecified; R63.5 Abnormal weight gain
CPT/HCPCS: 80053; 82306; 85027; 85652; 86200; 82607; 82728; 83540; 83550; 83735; 86140; 86431

== ENCOUNTER 2023-10-12 10:09 | Outpatient (REF) | payer MEDICAID, SELFPAY ==
[2023-10-12 20:14] LABS: HCT 39.7 % (36.0-46.0); HGB 13.3 g/dL (11.2-15.7); MCHC 33.5 % (32.0-36.0); MCV 99 fL (80-95); MPV 9.6 fL (8.0-11.0); Platelet Count 255 10^3/uL (130-400); RBC 4.03 10^6/uL (3.93-5.22); RDW 13.2 % (11.7-14.6); RDW-SD 47.8 fL; WBC 4.64 10^3/uL (4.4-10.8)
[2023-10-12 20:26] LABS: ALT 28 U/L (14-59); AST 36 U/L (15-37); Albumin 3.6 g/dL (3.4-5.0); Alkaline Phosphatase 133 U/L (46-116); Anion Gap 7.6 mmol/L (3-11); BUN 15 mg/dL (7-18); Bilirubin, Total 0.4 mg/dL (0.2-1.0); CO2 27.4 mmol/L (21.0-32.0); CREATININE 1.1 mg/dL (0.55-1.02); Calcium 9.2 mg/dL (8.5-10.1); Chloride 107 mmol/L (98-107); Estimated GFR 55.76 (mL/min/1.73m2); Glucose 75 mg/dL (74-106); Potassium 4.5 mmol/L (3.5-5.1); Sodium 142 mmol/L (136-145); Total Protein 6.8 g/dL (6.4-8.2)
== END 2023-10-12 10:10 | disposition home or self-care (01) ==
LOC: NCHCN 10:09
PROVIDERS: PCP Internal Medicine; Visit Provider Physician Assistant
DX: Z01.818 Encounter for other preprocedural examination (principal)
CPT/HCPCS: 80053; 85027

== ENCOUNTER 2024-04-25 22:21 | Outpatient (REF) | payer OTHER, MEDICAID, SELFPAY ==
[2024-04-25 21:12] LABS: Abs Immature Grans 0.01 10^3/uL (0.0-0.06); Absolute Basophil Count 0.03 10^3/uL (0.0-0.2); Absolute Eosinophil Count 0.13 10^3/uL (0.0-0.7); Absolute Monocyte Count 0.52 10^3/uL (0.1-0.8); Absolute Neutrophil Count 3.27 10^3/uL (1.2-6.7); Basophils % 0.5 %; Eosinophils % 2.3 %; HCT 40.5 % (36.0-46.0); HGB 13.5 g/dL (11.2-15.7); Immature Grans % 0.2 %; MCH 32.7 pg (27.0-33.0); MCHC 33.3 % (32.0-36.0); MCV 98 fL (80-95); MPV 9.7 fL (8.0-11.0); Monocytes % 9.2 %; Neutrophils % 57.8 %; Platelet Count 254 10^3/uL (130-400); RBC 4.13 10^6/uL (3.93-5.22); RDW 11.9 % (11.7-14.6); RDW-SD 43.6 fL; WBC 5.66 10^3/uL (4.4-10.8)
== END 2024-04-25 22:22 | disposition home or self-care (01) ==
LOC: NCHCN 22:21
PROVIDERS: PCP Internal Medicine; Visit Provider Physician Assistant
DX: K76.0 Fatty (change of) liver, not elsewhere classified (principal)
CPT/HCPCS: 85025

== ENCOUNTER 2024-11-20 00:11 | Outpatient (CLI) | payer MEDICARE, SELFPAY ==
--- NOTE | 2024-11-20 07:00 | DI.RAD_ITS ---
Exam(s) XR FOOT RT COMPLETE EXAM: XR FOOT RT COMPLETE CLINICAL HISTORY: Right foot pain,M79.671. TECHNIQUE: 2D digital imaging was performed. Three views. COMPARISON: No exams were available for comparison FINDINGS: BONES: No acute fracture is present. No bony destructive lesion is seen. Large accessory navicular. Small ossicle adjacent to cuboid. Small plantar calcaneal spur. JOINTS: No dislocation present. Mild degenerative changes of the 1st MTP joint. Minimal hallux valg us. Hammertoe deformities. SOFT TISSUE: Normal. IMPRESSION: Small heel spur. Hammertoe deformities. DATA REPOSITORY: RADIATION DOSE DELIVERED:
--- NOTE | 2024-11-20 07:00 | DI.RAD_ITS ---
Exam(s) XR FOOT LT COMPLETE EXAM: XR FOOT LT COMPLETE CLINICAL HISTORY: Left foot pain,M79.672. TECHNIQUE: 2D digital imaging was performed. Three views. COMPARISON: CR XR FOOT RT COMPLETE from 11/20/2024 FINDINGS: BONES: No acute fracture is present. No bony destructive lesion is seen. Small plantar calcaneal sp ur. Large accessory navicular. Small ossicle adjacent to cuboid. JOINTS: No dislocation present. Mild degenerative changes of the 1st MTP joint and mild hallux valg us. SOFT TISSUE: Normal. IMPRESSION: Small heel spur. DATA REPOSITORY: RADIATION DOSE DELIVERED:
== END 2024-11-20 00:31 ==
PROVIDERS: PCP Internal Medicine; Visit Provider Podiatrist
DX: M79.671 Pain in right foot (principal); M79.672 Pain in left foot; M79.673 Pain in unspecified foot; M20.22 Hallux rigidus, left foot; M21.612 Bunion of left foot; M20.41 Other hammer toe(s) (acquired), right foot
CPT/HCPCS: 73630

== ENCOUNTER → 2024-11-21 12:56 | Outpatient (BNVA) | payer MEDICARE, SELFPAY | PROVIDERS: PCP Physician Assistant; Referring Provider Physician Assistant; Visit Provider Podiatrist | DX: M79.671 Pain in right foot (principal); M79.672 Pain in left foot; M20.22 Hallux rigidus, left foot; M21.612 Bunion of left foot; M20.41 Other hammer toe(s) (acquired), right foot | CPT/HCPCS: 99204 ==

== ENCOUNTER → 2024-12-06 14:55 | Outpatient (BNVA) | payer MEDICARE, SELFPAY | PROVIDERS: PCP Physician Assistant; Referring Provider Physician Assistant; Visit Provider Podiatrist | DX: M20.22 Hallux rigidus, left foot (principal); M79.672 Pain in left foot; M21.612 Bunion of left foot; M20.41 Other hammer toe(s) (acquired), right foot | CPT/HCPCS: 20600; J0702; J1100 ==